=== PATIENT | female | born 1985 | race Hispanic/Latino ===

== ENCOUNTER 2021-05-13 16:43 | Outpatient (CLI) | payer OTHER ==
[~2021-05-13] VITALS: Ht 144.8 cm; Wt 76.8 kg
[2021-05-13 17:04] VITALS: BP 123/75
[2021-05-13] MEDS ORDERED: PRENTAB9 PO (17:11)
[2021-05-13] MEDS ORDERED: NOVOINJ12 SC (17:11)
[2021-05-13 18:11] VITALS: BP 118/68
[2021-06-03] MEDS ORDERED: OXYC1TAB23 PO (05:38)
[2021-06-03] MEDS ORDERED: IBUP80TA PO (05:38)
[2021-06-04] MEDS ORDERED: COLA100C5 PO (15:00)
== END 2021-05-13 18:25 | disposition home or self-care (01) ==
LOC: M LDO 16:43
PROVIDERS: ATTEND Obstetrics & Gynecology
DX: O47.1 False labor at or after 37 completed weeks of gestation (principal); Z3A.37 37 weeks gestation of pregnancy; O34.219 Maternal care for unspecified type scar from previous cesarean delivery; O24.414 Gestational diabetes mellitus in pregnancy, insulin controlled; O09.513 Supervision of elderly primigravida, third trimester

== ENCOUNTER → 2021-07-29 | Outpatient (CLI) | payer OTHER ==
[~2021-07-29] MED LIST: COLA100C5 PO; IBUP80TA PO; NOVOINJ12 SC; OXYC1TAB23 PO; PRENTAB9 PO
== END ==
LOC: M LAB 07:24
PROVIDERS: ATTEND Specialist
DX: O24.419 Gestational diabetes mellitus in pregnancy, unspecified control (principal)

== ENCOUNTER → 2022-07-17 | Outpatient (CLI) | payer OTHER ==
[~2022-07-17] MED LIST changes: +OMEP40CA4 PO; +SUCR1SS PO
== END ==
LOC: M RAD 06:37
PROVIDERS: ATTEND Physician Assistant
DX: I87.2 Venous insufficiency (chronic) (peripheral) (principal); M79.605 Pain in left leg

== ENCOUNTER → 2022-08-14 | Outpatient (CLI) | payer OTHER ==
[2022-08-14 12:17] LABS: URIC ACID 4.2 MG/DL (3.1-7.8)
[2022-08-14 12:19] LABS: LDH LACTATE DEHYDROGENASE 202 U/L (120-246)
[2022-08-14 12:20] LABS: CPK CREATINE PHOSPHOKINASE 164 U/L (34-145)
[2022-08-14 12:21] LABS: ALKALINE PHOSPHATASE 87 U/L (46-116); ALT/SGPT 47 U/L (7.0-40); AST/SGOT 24 U/L (<34); BILIRUBIN,TOTAL 0.7 MG/DL (0.3-1.2); BLOOD UREA NITROGEN 11 MG/DL (9-23); CALCIUM LEVEL 8.1 MG/DL (8.5-10.1); CARBON DIOXIDE LEVEL 27 MMOL/L (20-31); CHLORIDE LEVEL 112 MMOL/L (98-107); CREATININE FOR GFR 0.57 MG/DL (0.55-1.30); GLOMERULAR FILTRATION RATE > 60.0 (>60); GLUCOSE, FASTING 82 MG/DL (60-100); POTASSIUM SERUM 3.7 MMOL/L (3.5-5.1); SODIUM LEVEL 139 MMOL/L (136-145); TOTAL PROTEIN 6.9 G/DL (5.7-8.2)
[2022-08-14 12:22] LABS: C REACTIVE PROTEIN QUANTITATIV < 0.40 MG/DL (<1.0); FREE T4 0.97 NG/DL (0.89-1.76); THYROID STIMULATING HORMONE 1.432 uIU/ML (0.55-4.78)
[2022-08-14 12:23] LABS: RHEUMATOID FACTOR QUANT < 3.5 IU/ML (<14)
[2022-08-14 12:25] LABS: THYROID PEROXIDASE ANTIBODY < 28.0 U/ML (<60.0)
== END ==
LOC: M RAD 07:23 → MERGE 07:30
PROVIDERS: ATTEND Physician Assistant
DX: R10.11 Right upper quadrant pain (principal); R53.83 Other fatigue; R20.2 Paresthesia of skin; R74.8 Abnormal levels of other serum enzymes
CPT/HCPCS: 36415; 78227; 80053; 81374; 82550; 83615; 84439; 84443; 84550; 84999; 85652; 86038; 86140; 86200; 86376; 86431; 86780; A9537

== ENCOUNTER → 2022-10-09 | Outpatient (CLI) | payer OTHER | LOC: M SLEEP HO 11:57 | PROVIDERS: ATTEND Internal Medicine Cardiovascular Disease | DX: R06.83 Snoring (principal) ==

== ENCOUNTER 2022-12-25 06:01 | Day surgery (SDC) | payer OTHER ==
[~2022-12-25] VITALS: Ht 144.8 cm; Wt 68.9 kg
[~2022-12-25 06:01] MED LIST changes: +ERGO500029; +OMEP40CA5; +PRAM0.123
[2022-12-25] MEDS ORDERED: LR 1,000 ML IV SCH ×2 (07:10→08:35)
[2022-12-25] MEDS ORDERED: ROCURONIUM BROMIDE 50MG/5ML VIAL As Ordered ONE (08:05)
[2022-12-25] MEDS ORDERED: LIDOCAINE 2% 100MG/5ML SDV (FOR ANES.) As Ordered ONE (08:05)
[2022-12-25] MEDS ORDERED: fentaNYL 100 MCG/2 ML INJECTION As Ordered ONE (08:05)
[2022-12-25] MEDS ORDERED: propofoL 200 MG/20 ML VIAL As Ordered ONE (08:05)
[2022-12-25] MEDS ORDERED: MIDAZOLAM INJ 2MG/2ML VIAL As Ordered ONE (08:05)
[2022-12-25] MEDS ORDERED: ACETAMINOPHEN 1000MG 100ML IV BAG As Ordered ONE (08:05)
[2022-12-25] MEDS ORDERED: SUGAMMADEX SODIUM 500 MG/5 ML VIAL (BRIDION) As Ordered ONE (08:05)
[2022-12-25] MEDS ORDERED: ONDANSETRON 4MG 2ML VIAL As Ordered ONE (08:05)
[2022-12-25] MEDS ORDERED: KETOROLAC 60MG 2ML VIAL As Ordered ONE (08:06)
[2022-12-25] MEDS ORDERED: oxyCODONE 5MG TAB PO PRN (08:35)
[2022-12-25] MEDS ORDERED: fentaNYL 100 MCG/2 ML INJECTION IV PRN (08:35)
[2022-12-25] MEDS ORDERED: HYDROMORPHONE HCL 0.5 MG/ 0.5 ML SYRINGE IV PRN (08:35)
[2022-12-25] MEDS ORDERED: ONDANSETRON 4MG 2ML VIAL IV PRN (08:35)
[2022-12-25] MEDS ORDERED: NORCO, ANEXSIA 5/325MG TABLET (HYDROcodone/ACETAMINOPHEN) PO PRN (08:50)
[2022-12-25 11:20] VITALS: BP 113/55; TEMP 96.9; O2SAT 100
== END 2022-12-25 11:30 | disposition home or self-care (01) ==
LOC: M SDC 06:01
PROVIDERS: ATTEND Surgery
DX: K81.1 Chronic cholecystitis (principal); I67.1 Cerebral aneurysm, nonruptured
CPT/HCPCS: 47562; 81025; 88304; J0131; J0665; J1100; J1885; J2250; J2405; J3010; S2900

== ENCOUNTER → 2023-04-06 | Outpatient (CLI) | payer OTHER ==
[2023-04-06 14:40] LABS: HEMATOCRIT 38.3 % (36.0-47.0); HEMOGLOBIN 12.5 g/dl (12.0-15.5); MEAN CORPUSCULAR HEMOGLOBIN 29.5 pg (27.0-33.0); MEAN CORPUSCULAR HGB CONC 32.6 g/dl (32.0-36.5); MEAN CORPUSCULAR VOLUME 90.3 fl (80.0-96.0); PLATELET COUNT, AUTOMATED 336 10^3/uL (150-450); RED BLOOD COUNT 4.24 10^6/uL (4.00-5.40); WHITE BLOOD COUNT 6.6 10^3/uL (4.0-10.0)
[2023-04-06 15:05] LABS: HEMOGLOBIN A1c 5.5 % (4.0-6.0)
[2023-04-06 15:19] LABS: HIV 1&2 SCREEN NEGATIVE (NEGATIVE)
[2023-04-06 15:28] LABS: HEPATITIS C VIRUS ABY INDEX < 0.02 INDEX (<0.8)
[2023-04-06 16:55] LABS: CHLAMYDIA DNA AMPLIFICATION NEGATIVE (NEGATIVE); GC DNA AMPLIFICATION NEGATIVE (NEGATIVE)
== END ==
LOC: M PLALAB 11:06
PROVIDERS: ATTEND Advanced Practice Midwife
DX: Z34.91 Encounter for supervision of normal pregnancy, unspecified, first trimester (principal)

== ENCOUNTER → 2023-05-24 | Outpatient (CLI) | payer MEDICAID | LOC: M WHC 08:07 | PROVIDERS: ATTEND Specialist | DX: O44.02 Complete placenta previa NOS or without hemorrhage, second trimester (principal); Z3A.19 19 weeks gestation of pregnancy ==

== ENCOUNTER → 2023-06-18 | Outpatient (CLI) | payer MEDICAID | LOC: M WHC 13:08 | PROVIDERS: ATTEND Specialist | DX: Z34.82 Encounter for supervision of other normal pregnancy, second trimester (principal) ==

== ENCOUNTER → 2023-06-28 | Outpatient (CLI) | payer MEDICAID ==
[2023-06-28 12:59] LABS: HEMATOCRIT 34.6 % (36.0-47.0); HEMOGLOBIN 11.6 g/dl (12.0-15.5); MEAN CORPUSCULAR HEMOGLOBIN 30.4 pg (27.0-33.0); MEAN CORPUSCULAR HGB CONC 33.5 g/dl (32.0-36.5); MEAN CORPUSCULAR VOLUME 90.6 fl (80.0-96.0); PLATELET COUNT, AUTOMATED 316 10^3/uL (150-450); RED BLOOD COUNT 3.82 10^6/uL (4.00-5.40); WHITE BLOOD COUNT 7.6 10^3/uL (4.0-10.0)
[2023-06-28 13:54] LABS: ALBUMIN 2.7 G/DL (3.2-5.2); ALKALINE PHOSPHATASE 93 U/L (46-116); ALT/SGPT 25 U/L (7.0-40); AST/SGOT 23 U/L (<34); BILIRUBIN,DIRECT < 0.1 MG/DL (<0.4); BILIRUBIN,TOTAL 0.4 MG/DL (0.3-1.2); TOTAL PROTEIN 6.5 G/DL (5.7-8.2)
[2023-06-28 14:07] LABS: GC DNA AMPLIFICATION NEGATIVE (NEGATIVE)
== END ==
LOC: M PLALAB 09:03
PROVIDERS: ATTEND Specialist
DX: Z34.82 Encounter for supervision of other normal pregnancy, second trimester (principal)

== ENCOUNTER → 2023-09-23 | Outpatient (REF) | payer MEDICAID | LOC: M SFHCWAGY 13:07 | PROVIDERS: ATTEND Obstetrics & Gynecology | DX: Z36.85 Encounter for antenatal screening for Streptococcus B (principal); Z3A.36 36 weeks gestation of pregnancy ==